=== PATIENT | female | born 1955 | race Caucasian/White ===

== ENCOUNTER → 2020-06-07 | Outpatient (CLI) | payer MEDICARE ==
--- NOTE | 2020-06-07 16:02 | Diagnostic Imaging Report ---
PROCEDURE: MR imaging cervical spine without contrast. TECHNIQUE: Multiplanar, multisequence MR imaging of the cervical spine was performed without contrast. INDICATION: Bilateral upper extremity neuropathy. COMPARISON: No prior studies are available for comparison. FINDINGS: Alignment of the cervical spine is normal. Vertebral body marrow signal is unremarkable. No geographic marrow lesion is seen. There is multilevel degenerative disc disease with variable disc space narrowing and desiccation with marginal osteophyte formation. This appears to be most prominent at the C4-C5, C5-C6, and C6-C7 levels. The cervical cord does show normal homogeneous signal intensity and normal morphology. Craniocervical junction is unremarkable. C2-C3: Central canal and neuroforamina are widely patent. C3-C4: Endplate osteophytes indent the ventral thecal sac but central canal and neuroforamina remain widely patent. C4-C5: Endplate osteophytes flatten the ventral thecal sac but central canal and neuroforamina remain widely patent. C5-C6: Broad-based disc/osteophyte complex indents the ventral thecal sac. There is [id number] narrowing of the canal. Neuroforamina appear patent bilaterally. C6-C7: Broad-based disc/osteophyte complex indents the ventral thecal sac and produces [id number] central canal narrowing. Neuroforamina appear patent bilaterally. C7-T1: No central canal or neuroforaminal narrowing is detected. Paraspinous tissues are unremarkable. IMPRESSION: Generalized cervical spondylosis. There is central canal narrowing, described level by level above. No neuroforaminal stenosis is identified. Dictated by: Dictated on workstation # [id number]
== END ==
LOC: RAD 15:30
PROVIDERS: ATTEND Internal Medicine
DX: M48.02 Spinal stenosis, cervical region (principal); M47.812 Spondylosis without myelopathy or radiculopathy, cervical region; M25.78 Osteophyte, vertebrae; M50.30 Other cervical disc degeneration, unspecified cervical region
CPT/HCPCS: 72141

== ENCOUNTER → 2021-06-27 | Outpatient (CLI) | payer MEDICARE ==
--- NOTE | 2021-06-27 17:08 | Diagnostic Imaging Report ---
INDICATION: COUGH COMPARISON: None FINDINGS: Single frontal view of the chest demonstrates normal heart size and pulmonary vascularity. The lungs are well aerated and clear. No large pleural effusion or pneumothorax is seen. The visualized osseous structures show no acute abnormalities. IMPRESSION: 1. No acute cardiopulmonary process. Dictated by: Dictated on workstation # [id number]
== END ==
LOC: RAD 15:42
PROVIDERS: ATTEND Internal Medicine
DX: R05.9 Cough, unspecified (principal)
CPT/HCPCS: 71045

== ENCOUNTER → 2021-07-17 | Outpatient (CLI) | payer MEDICARE, OTHER ==
--- NOTE | 2021-07-17 16:56 | Diagnostic Imaging Report ---
INDICATION: Pain. Fall. FINDINGS: There is a chronic-appearing bowing deformity demonstrated of the proximal right femur. There are no findings of an acute fracture. There are moderate osteoarthritic changes at the right hip with associated acetabular and femoral osteophytes. Arthritic changes also present as noted at the knee as described on the separate exam. IMPRESSION: 1. 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 No acute fracture or dislocation demonstrated. Dictated by: Dictated on workstation # [id number]
--- NOTE | 2021-07-17 16:56 | Diagnostic Imaging Report ---
INDICATION: Pain. Fall. FINDINGS: Alignment of the knee is appropriate. There are tricompartment osteoarthritic changes present. There is joint space loss most significantly demonstrated within the medial and patellofemoral compartments. There are small patellar osteophytes. There is no acute fracture. There is no significant knee joint effusion. IMPRESSION: Background osteoarthritic change within the right knee as described. No malalignment, fracture or significant joint effusion evident. Dictated by: Dictated on workstation # [id number]
== END ==
LOC: RAD 16:03
PROVIDERS: ATTEND Internal Medicine
DX: M17.11 Unilateral primary osteoarthritis, right knee (principal); M16.11 Unilateral primary osteoarthritis, right hip; W19.XXXA Unspecified fall, initial encounter
CPT/HCPCS: 73552; 73562

== ENCOUNTER 2023-01-20 12:03 | Outpatient (RCR) | payer MEDICARE, OTHER ==
[~2023-01-20] VITALS: Ht 165 cm; Wt 72.7 kg
[2023-01-20] MEDS ORDERED: FERRIC CARBOXYMALTOSE INJ 750 MG in NS (IVPB) 250 ML IV SCH (12:30)
[2023-01-20 12:51] VITALS: BP 131/76
== END 2023-01-24 | disposition home or self-care (01) ==
LOC: SDC 12:03
PROVIDERS: ATTEND Internal Medicine
DX: E61.1 Iron deficiency (principal)
CPT/HCPCS: 96365

== ENCOUNTER 2023-01-27 13:26 | Outpatient (RCR) | payer MEDICARE, OTHER ==
[~2023-01-27] VITALS: Ht 165 cm; Wt 72.7 kg
[2023-01-27] MEDS ORDERED: FERRIC CARBOXYMALTOSE INJ 750 MG in NS (IVPB) 250 ML IV SCH (13:45)
[2023-01-27 14:25] VITALS: BP 132/75
== END 2023-01-27 14:25 | disposition home or self-care (01) ==
LOC: SDC 13:26
PROVIDERS: ATTEND Internal Medicine
DX: E61.1 Iron deficiency (principal)
CPT/HCPCS: 96365